=== PATIENT | female | born 1995 | race Caucasian/White ===

== ENCOUNTER 2016-08-14 15:17 | Emergency (ER) | payer OTHER ==
[2016-08-14 15:35] VITALS: BP 120/69
== END 2016-08-14 16:04 | disposition left against medical advice (07) ==
LOC: ED 15:17
DX: R11.10 Vomiting, unspecified (principal); Z53.21 Procedure and treatment not carried out due to patient leaving prior to being seen by health care provider

== ENCOUNTER 2016-08-14 17:02 | Emergency (ER) | payer OTHER ==
[2016-08-14] MEDS ORDERED: Metoclopramide IV* 5 MG/ML 2 ML VIAL IV ONE (18:44)
[2016-08-14] MEDS ORDERED: NS 0.9% 1000 ML* 1,000 ML IV SCH (18:45)
--- NOTE | 2016-08-14 18:56 | UC ---
Abdominal Pain Female HPI - HPI Summary HPI Summary: ONSET ON N/V/D LAST NIGHT AT 11:30PM. UP ALL NIGHT. WENT TO [facility] TODAY AND DX WITH GASTROENTERITIS AND GIVEN ZOFRAN AND IVF. FELT BETTER FOR ABOUT AN HOUR THEN SX RETURNED. UNABLE TO KEEP ANYTHING DOWN INCLUDING THE ZOFRAN. CALLED [facility] AND WAS ADVISED TO COME HERE. - History of Current Complaint Chief Complaint: UCGI Stated Complaint: VOMITING Time Seen by Provider: 08/14/16 18:19 Hx Obtained From: Patient Hx Last Menstrual Period: 08/11/16 Onset/Duration: Sudden Onset, Lasting Hours, Still Present Timing: Constant Severity Initially: Moderate Severity Currently: Moderate Pain Intensity: 6 Pain Scale Used: 0-10 Numeric Location: Diffuse Radiates: No Character: Cramping Aggravating Factor(s): Food Associated Signs and Symptoms: Positive: Fever, Decreased Appetite, Nausea, Vomiting, Diarrhea. Negative: Cough, Back Pain, Constipation, Blood in Stool, Urinary Symptoms Allergies/Adverse Reactions: Allergies Allergy/AdvReac Type Severity Reaction Status Date / Time Cephalosporins Allergy Unknown Verified 08/14/16 17:23 Reaction Details Penicillins Allergy Unknown Verified 08/14/16 17:23 Reaction Details PMH/Surg Hx/FS Hx/Imm Hx Previously Healthy: Yes Endocrine History Of: Denies: Diabetes, Thyroid Disease Cardiovascular History Of: Denies: Cardiac Disorders, Hypertension Respiratory History Of: Denies: COPD, Asthma GI/ History Of: Denies: Ulcer - Surgical History Surgical History: Yes Surgery Procedure, Year, and Place: eye lid surgery - Family History Known Family History: Positive: Hypertension, Diabetes - Social History Alcohol Use: Occasionally Substance Use Type: None Smoking Status (MU): Never Smoked Tobacco Review of Systems Constitutional: Fever, Fatigue Respiratory: Negative Cardiovascular: Negative Gastrointestinal: Abdominal Pain, Vomiting, Diarrhea, Other - NAUSEA All Other Systems Reviewed And Are Negative: Yes Physical Exam Triage Information Reviewed: Yes Appearance: Well-Appearing, No Pain Distress, Well-Nourished Vital Signs: Initial Vital Signs Temp 100.9 F 08/14/16 17:16 Pulse 102 08/14/16 17:16 Resp 16 08/14/16 17:16 BP 117/66 08/14/16 17:16 Pulse Ox 100 08/14/16 17:16 Vital Signs Reviewed: Yes Eyes: Positive: Conjunctiva Clear ENT: Positive: Hearing grossly normal Neck: Positive: Supple Respiratory Exam: Normal Cardiovascular: Positive: Tachycardia Abdomen Description: Positive: Soft, Other: - DIFFUSELY TENDER. NO REBOUND OR RIGIDITY. Negative: Distended, Guarding Bowel Sounds: Positive: Present Musculoskeletal: Positive: No Edema Neurological: Positive: Alert Psychological: Positive: Age Appropriate Behavior Skin: Negative: rashes Re-Evaluation - Re-Evaluation First Eval Re-Evaluation Time: 20:07 - FEELS MODERATELY BETTER AFTER 1L NS AND REGLAN. READY FOR D/C HOME Change: Improved Abd Pain Female Course/Dx - Differential Dx/Diagnosis Provider Diagnoses: GASTROENTERITIS Discharge - Discharge Plan Condition: Stable Disposition: HOME Prescriptions: Ondansetron ODT TAB* [Zofran Odt TAB*] 4 mg PO Q6H PRN #20 tab.odt PRN Reason: Nausea/Vomiting Patient Education Materials: Gastroenteritis (ED) Referrals: [facility] [Primary Care Provider] - If Needed Additional Instructions: YOU HAVE RECEIVED 1L OF SALINE THROUGH AN IV ALONG WITH 10MG REGLAN FOR NAUSEA. THIS IS IN ADDITION TO WHAT YOU RECEIVED AT [facility] TODAY. YOUR SYMPTOMS ARE CONSISTENT WITH ACUTE GASTROENTERITIS AND SHOULD START TO IMPROVE OVER THE NEXT SEVERAL DAYS. UNTIL THEN YOU WILL LIKELY CONTINUE TO HAVE SOME NAUSEA, VOMITING AND DIARRHEA. BE SURE TO TAKE SMALL FREQUENT SIPS OF FLUIDS. EVEN IF YOU THROW UP, SOME WILL STAY IN. GO TO THE ER IF YOU FEEL YOU ARE NOT ABLE TO TOLERATE YOUR SYMPTOMS AT HOME.
[2016-08-14 20:24] VITALS: BP 140/72
== END 2016-08-14 20:24 | disposition home or self-care (01) ==
LOC: UCEAST 17:02
DX: K52.9 Noninfective gastroenteritis and colitis, unspecified (principal); Z88.1 Allergy status to other antibiotic agents; Z88.0 Allergy status to penicillin
CPT/HCPCS: 96360; 96375; 99212; G0463